=== PATIENT | male | born 1935 | race Caucasian/White ===

== ENCOUNTER 2018-07-25 14:19 | Emergency (ER) | payer MEDICARE | END 2018-07-25 15:52 | disposition home or self-care (01) | LOC: NAV ERS 14:19 → EDSEX 14:19 → NAV ERS 15:52 | DX: F03.90 Unspecified dementia, unspecified severity, without behavioral disturbance, psychotic disturbance, mood disturbance, and anxiety (principal); Z86.73 Personal history of transient ischemic attack (TIA), and cerebral infarction without residual deficits | CPT/HCPCS: 99284 ==